=== PATIENT | female | born 1975 | race Caucasian/White ===

== ENCOUNTER 2021-02-10 20:54 | Emergency (ER) | payer OTHER ==
[~2021-02-10] VITALS: Ht 144.8 cm; Wt 81.6 kg
--- NOTE | 2021-02-10 21:35 | NUR ---
BIBS C/O BODY ACHES, NAUSEA, DIARRHEA AND COUGH XFEWHOURS. 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 PT A/OX4. TOLERATING R/A WELL AT 99%. COVID VACCINATED X2 DODES. CONNECTED PT TO POX AND MONITOR
[2021-02-10] MEDS ORDERED: ONDANSETRON HCL/PF 4 MG/2 ML VIAL ONE (21:55)
[2021-02-10] MEDS ORDERED: MORPHINE SULFATE INJ 4 MG/ML DISP.SYRIN ONE (21:55)
[2021-02-10] MEDS ORDERED: MORPHINE SULFATE INJ 2 MG/ML DISP.SYRIN IV ONE (22:00)
[2021-02-10] MEDS ORDERED: IV NS 0.9% 1,000 ML BAG IV ONE (22:00)
[2021-02-10] MEDS ORDERED: ONDANSETRON HCL/PF 4 MG/2 ML VIAL IVP ONE (22:00)
--- NOTE | 2021-02-10 22:15 | NUR ---
R WRIST #20G S/L; PATENT AND INTACT. BLOOD COLLECTED AND SENT TO LAB COVID PCR, RAPID, AND INFLUENZA SWAB COLLECTED AND SENT TO LAB.
[2021-02-10 22:30] LABS: BASOPHILS % (AUTO) 0.5 % (0.0-2.0); EOSINOPHILS % (AUTO) 0.5 % (0.0-6.0); HEMATOCRIT 37 % (33-45); HEMOGLOBIN 11.9 g/dL (11.5-14.8); LYMPHOCYTES % (AUTO) 14.5 % (20.0-44.0); MEAN CORPUSCULAR HGB CONC 33 g/dl (31.0-36.0); MEAN CORPUSCULAR VOLUME 86 fL (82-100); MONOCYTES # (AUTO) 0.7 K/uL (0.1-1.30); MONOCYTES % (AUTO) 9.6 % (2.0-12.0); NEUTROPHILS # (AUTO) 5.3 K/uL (1.8-8.9); NEUTROPHILS % (AUTO) 74.9 % (43.0-81.0); PLATELET COUNT (AUTO) 300 K/uL (150-450); RED BLOOD CELL COUNT(AUTO) 4.26 MIL/uL (4.0-5.2); WHITE BLOOD COUNT (AUTO) 7.1 K/uL (4.3-11.0)
[2021-02-10 22:57] LABS: ALBUMIN 3.2 g/dL (3.4-5.0); BILIRUBIN,TOTAL 0.2 mg/dL (0.2-1.0); CALCIUM, SERUM 7.6 mg/dL (8.5-10.1); CREATININE 0.8 mg/dL (0.6-1.3); POTASSIUM 3.9 mmol/L (3.5-5.1); TOTAL PROTEIN, SERUM 7.7 g/dL (6.4-8.2)
[2021-02-10 23:04] LABS: BILIRUBIN,URINE NEGATIVE (NEGATIVE); COLOR,URINE YELLOW (YELLOW); LEUKOCYTE ESTERASE ,URINE NEGATIVE (NEGATIVE); NITRITE, URINE NEGATIVE (NEGATIVE); PROTEIN,URINE NEGATIVE (NEGATIVE); UGLUCOSE 500 MG/DL mg/dL (NEGATIVE); UROBILINOGEN,URINE 0.2 EU/dL (0.2)
--- NOTE | 2021-02-10 23:06 | NUR ---
PER [facility] PA ORDERS: TO D/C IVF .ORDERS CARRIED OUT PT TOTAL IVF INTAKE 500 NS ML.
[2021-02-10] MEDS ORDERED: ONDA4TAB5 PO (23:09)
[2021-02-10] MEDS ORDERED: ACET-2605 PO (23:09)
[2021-02-10 23:11] LABS: BACTERIA,URINE None seen /HPF (None Seen); RBC,URINE 0-2 /HPF (0-2); SQUAMOUS EPITHELIAL CELL,UR Few /HPF (None Seen); WBC,URINE 0-2 /HPF (0-3)
--- NOTE | 2021-02-10 23:36 | NUR ---
Patient discharged to home in stable condition. RX Written and verbal after care instructions given. Patient verbalizes understanding of instruction. PT ambulatory with a steady gait.
[2021-02-10 23:44] VITALS: BP 97/59
== END 2021-02-10 23:47 | disposition home or self-care (01) ==
LOC: ER 21:20
DX: U07.1 COVID-19 (principal); I10 Essential (primary) hypertension; E87.1 Hypo-osmolality and hyponatremia; E11.65 Type 2 diabetes mellitus with hyperglycemia; R00.0 Tachycardia, unspecified
CPT/HCPCS: 36415; 71045; 80053; 81001; 83690; 84703; 85025; 87426; 87804; 96361; 96374; 96375; 99284; C9803 ×2; J2270; J2405; J7030; U0003

== ENCOUNTER 2021-02-16 06:10 | Emergency (ER) | payer OTHER ==
[~2021-02-16] VITALS: Ht 144.8 cm; Wt 81.6 kg
[~2021-02-16 06:10] MED LIST: ACET-2605 PO; ONDA4TAB5 PO
--- NOTE | 2021-02-16 06:10 | NUR ---
BIBS. EPIGASTRIC PAIN RADIATING TO MID BACK. X 2100. COVID POSUITIVE SINCE 02/10. PT SENT TO BED 7 AWAITING MD DE LA TORRE
[2021-02-16] MEDS ORDERED: FAMOTIDINE (20 MG) 20 MG TABLET PO ONE (07:30)
[2021-02-16] MEDS ORDERED: MAG HYDROX/AL HYDROX/SIMETH 30 ML UDC PO ONE (07:30)
[2021-02-16] MEDS ORDERED: LIDOCAINE VISCOUS 2% UD 15 ML UDC MM ONE (07:30)
[2021-02-16] MEDS ORDERED: MAG HYDROX/AL HYDROX/SIMETH 30 ML UDC ONE (08:07)
[2021-02-16] MEDS ORDERED: FAMOTIDINE (20 MG) 20 MG TABLET ONE (08:08)
[2021-02-16] MEDS ORDERED: LIDOCAINE VISCOUS 2% UD 15 ML UDC ONE (08:08)
--- NOTE | 2021-02-16 08:13 | NUR ---
URINE COLLECTED AND SENT TO THE LAB
--- NOTE | 2021-02-16 08:42 | NUR ---
Patient discharged to home in stable condition. Written and verbal after care instructions given. Patient verbalizes understanding of instruction.
[2021-02-16 08:44] VITALS: BP 119/67
== END 2021-02-16 08:45 | disposition home or self-care (01) ==
LOC: ER 06:10
DX: U07.1 COVID-19 (principal); R10.13 Epigastric pain; I10 Essential (primary) hypertension; E11.9 Type 2 diabetes mellitus without complications
CPT/HCPCS: 84703-TC